=== PATIENT | male | born 1990 | race Caucasian/White ===

== ENCOUNTER 2020-10-12 15:06 | Emergency (ER) | payer OTHER, BC ==
[2020-10-12] MEDS ORDERED: HYDROmorphone 1 MG/ML CARPUJECT IM STA (16:01)
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
[2020-10-12 16:47] VITALS: BP 136/86
== END 2020-10-12 17:07 | disposition home or self-care (01) ==
LOC: ED 15:06
DX: M25.511 Pain in right shoulder (principal); G89.29 Other chronic pain; M54.6 Pain in thoracic spine; W07.XXXA Fall from chair, initial encounter; Y93.89 Activity, other specified; Y92.009 Unspecified place in unspecified non-institutional (private) residence as the place of occurrence of the external cause; Y99.0 Civilian activity done for income or pay
CPT/HCPCS: 96372; 99281; 99284; J1170

== ENCOUNTER 2023-05-20 19:10 | Emergency (ER) | payer OTHER ==
[2023-05-20 19:22] VITALS: BP 128/84
--- OUTSIDE RECORDS SUMMARY | 2023-05-20 19:39 | EXTERNAL MEDICAL SUMMARY RPT | Continuity of Care Document ---
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 Name Role Phone Ricardo Mejía Unavailable Unavailable Medications date description facility 2023-03-11 00:00 Amoxicillin-Pot Cl[facility]ulanate [facility] Results/Labs test date author facility value unit interpretation Result panel 1 (unknown) (no date) (unknown) (unknown) (no value) (units unknown) (unknown) (unknown) (no date) (unknown) (unknown) 03/11/23 (units unknown) (unknown) (unknown) (no date) (unknown) (unknown) [id number] (units unknown) (unknown) (unknown) (no date) (unknown) (unknown) Age/Sex: 33 / M Date of Service: (units unknown) (unknown) (unknown) (no date) (unknown) (unknown) Allergies (units unknown) (unknown) (unknown) (no date) (unknown) (unknown) [facility] (units unknown) (unknown) (unknown) (no date) (unknown) (unknown) [place] [address] (units unknown) (unknown) (unknown) (no date) (unknown) (unknown) Attending Dr: Juliette MELISSA (units unknown) (unknown) (unknown) (no date) (unknown) (unknown) : 9 Acct:[id number] (units unknown) (unknown) (unknown) (no date) (unknown) (unknown) Dept at . (units unknown) (unknown) (unknown) (no date) (unknown) (unknown) Documented By: Juliette Daniel 03/11/23 1238 (units unknown) (unknown) (unknown) (no date) (unknown) (unknown) Draft (units unknown) (unknown) (unknown) (no date) (unknown) (unknown) Intake perform ed by: Mode Koo (units unknown) (unknown) (unknown) (no date) (unknown) (unknown) Intake (units unknown) (unknown) (unknown) (no date) (unknown) (unknown) Intake- Irma mcclelland Staff (units unknown) (unknown) (unknown) (no date) (unknown) (unknown) Loc: [facility] (units unknown) (unknown) (unknown) (no date) (unknown) (unknown) No Known Drug Allergies Allergy (Unverified 01/17/23 13:16) (units unknown) (unknown) (unknown) (no date) (unknown) (unknown) PFSH (units unknown) (unknown) (unknown) (no date) (unknown) (unknown) Patient: Bebo Cohen MR#: [id number] (units unknown) (unknown) (unknown) (no date) (unknown) (unknown) Reason For Visit (un its unknown) (unknown) (unknown) (no date) (unknown) (unknown) Signed By: (units unknown) (unknown) (unknown) (no date) (unknown) (unknown) Smoking Status : Unknown if ever smoked (units unknown) (unknown) (unknown) (no date) (unknown) (unknown) This note may have been all or partially generated using voice recognition (units unknown) (unknown) (unknown) (no date) (unknown) (unknown) Tobacco + Subs tance Use (units unknown) (unknown) (unknown) (no date) (unknown) (unknown) Tobacco Status (unit s unknown) (unknown) (unknown) (no date) (unknown) (unknown) Visit Reasons: poss ear infection discharge drainage (units unknown) (unknown) (unknown) (no date) (unknown) (unknown) Walk In Clinic Visit (units unknown) (unknown) (unknown) (no date) (unknown) (unknown) have occurred. If there are any questions, please contact the Medical Records (units unknown) (unknown) (unknown) (no date) (unknown) (unknown) may occur. Occasional wrong-word or 'sound-alike' substitutions may have (units unknown) (unknown) (unknown) (no date) (unknown) (unknown) occurred due t o the inherent limitations of voice recognition software. Please (units unknown) (unknown) (unknown) (no date) (unknown) (unknown) read the note carefully and recognize, using context, where these substitutions (units unknown) (unknown) (unknown) (no date) (unknown) (unknown) software. Alth ough every effort is made to edit content, live in housekeeper nanny errors (units unknown) (unknown) Result panel 2 (unknown) (no date) (unknown) (unknown) (no value) (units unknown) (unknown) (unknown) (no date) (unknown) (unknown) 03/11/23 (units unknown) (unknown) (unknown) (no date) (unknown) (unknown) 12:41 (units unknown) (unknown) (unknown) (no date) (unknown) (unknown) [id number] (units unknown) (unknown) (unknown) (no date) (unknown) (unknown) Age/Sex: 33 / M Date of Service: (units unknown) (unknown) (unknown) (no date) (unknown) (unknown) Allergies (units unknown) (unknown) (unknown) (no date) (unknown) (unknown) [facility] (units unknown) (unknown) (unknown) (no date) (unknown) (unknown) [place] [address] (units unknown) (unknown) (unknown) (no date) (unknown) (unknown) Attending Dr: Juliette MELISSA (units unknown) (unknown) (unknown) (no date) (unknown) (unknown) BMI 28.6 (units unknown) (unknown) (unknown) (no date) (unknown) (unknown) : 9 Acct:[id number] (units unknown) (unknown) (unknown) (no date) (unknown) (unknown) Dept at . (units unknown) (unknown) (unknown) (no date) (unknown) (unknown) Documented By: Juliette Daniel 03/11/23 1238 (units unknown) (unknown) (unknown) (no date) (unknown) (unknown) Draft (units unknown) (unknown) (unknown) (no date) (unknown) (unknown) Height 6 ft 6 in (un its unknown) (unknown) (unknown) (no date) (unknown) (unknown) Intake Note: (units unknown) (unknown) (unknown) (no date) (unknown) (unknown) Intake perform ed by: Mode Koo (units unknown) (unknown) (unknown) (no date) (unknown) (unknown) Intake (units unknown) (unknown) (unknown) (no date) (unknown) (unknown) Intake- Irma mcclelland Staff (units unknown) (unknown) (unknown) (no date) (unknown) (unknown) Loc: [facility] (units unknown) (unknown) (unknown) (no date) (unknown) (unknown) No Known Drug Allergies Allergy (Unverified 01/17/23 13:16) (units unknown) (unknown) (unknown) (no date) (unknown) (unknown) Oxygen Deliver y Method room air (units unknown) (unknown) (unknown) (no date) (unknown) (unknown) PFSH (units unknown) (unknown) (unknown) (no date) (unknown) (unknown) Patient: Bebo Cohen MR#: [id number] (units unknown) (unknown) (unknown) (no date) (unknown) (unknown) Pulse 71 (units unknown) (unknown) (unknown) (no date) (unknown) (unknown) Pulse Oximetry (%) 98 (units unknown) (unknown) (unknown) (no date) (unknown) (unknown) Pulse Source Monitor (units unknown) (unknown) (unknown) (no date) (unknown) (unknown) Reason For Visit (un its unknown) (unknown) (unknown) (no date) (unknown) (unknown) Signed By: (units unknown) (unknown) (unknown) (no date) (unknown) (unknown) Smoking Status : Unknown if ever smoked (units unknown) (unknown) (unknown) (no date) (unknown) (unknown) Temp 97.6 F (units unknown) (unknown) (unknown) (no date) (unknown) (unknown) Temp Source Temporal Artery Scan (units unknown) (unknown) (unknown) (no date) (unknown) (unknown) This note may have been all or partially generated using voice recognition (units unknown) (unknown) (unknown) (no date) (unknown) (unknown) Tobacco + Subs tance Use (units unknown) (unknown) (unknown) (no date) (unknown) (unknown) Tobacco Status (unit s unknown) (unknown) (unknown) (no date) (unknown) (unknown) Visit Reasons: poss ear infection discharge drainage (units unknown) (unknown) (unknown) (no date) (unknown) (unknown) Vitals (units unknown) (unknown) (unknown) (no date) (unknown) (unknown) Walk In Clinic Visit (units unknown) (unknown) (unknown) (no date) (unknown) (unknown) Weight 248 lb (units unknown) (unknown) (unknown) (no date) (unknown) (unknown) ear has been h aving slight drainage (units unknown) (unknown) (unknown) (no date) (unknown) (unknown) have occurred. If there are any questions, please contact the Medical Records (units unknown) (unknown) (unknown) (no date) (unknown) (unknown) may occur. Occasional wrong-word or 'sound-alike' substitutions may have (units unknown) (unknown) (unknown) (no date) (unknown) (unknown) no fever (units unknown) (unknown) (unknown) (no date) (unknown) (unknown) occurred due t o the inherent limitations of voice recognition software. Please (units unknown) (unknown) (unknown) (no date) (unknown) (unknown) pt has been acuña ving pain in left ear since (units unknown) (unknown) (unknown) (no date) (unknown) (unknown) pt is here for possible ear infection (units unknown) (unknown) (unknown) (no date) (unknown) (unknown) read the note carefully and recognize, using context, where these substitutions (units unknown) (unknown) (unknown) (no date) (unknown) (unknown) slowly has bee n getting worse, slight ACUÑA and dizziness (units unknown) (unknown) (unknown) (no date) (unknown) (unknown) software. Alth ough every effort is made to edit content, live in housekeeper nanny errors (units unknown) (unknown) Result panel 3 (unknown) (no date) (unknown) (unknown) (no value) (units unknown) (unknown) (unknown) (no date) (unknown) (unknown) 03/11/23 (units unknown) (unknown) (unknown) (no date) (unknown) (unknown) 12:41 (units unknown) (unknown) (unknown) (no date) (unknown) (unknown) [id number] (units unknown) (unknown) (unknown) (no date) (unknown) (unknown) Age/Sex: 33 / M Date of Service: (units unknown) (unknown) (unknown) (no date) (unknown) (unknown) Allergies (units unknown) (unknown) (unknown) (no date) (unknown) (unknown) [facility] (units unknown) (unknown) (unknown) (no date) (unknown) (unknown) [place] [address] (units unknown) (unknown) (unknown) (no date) (unknown) (unknown) Attending Dr: Juliette MELISSA (units unknown) (unknown) (unknown) (no date) (unknown) (unknown) BMI 28.6 (units unknown) (unknown) (unknown) (no date) (unknown) (unknown) : 9 Acct:[id number] (units unknown) (unknown) (unknown) (no date) (unknown) (unknown) Dept at . (units unknown) (unknown) (unknown) (no date) (unknown) (unknown) Documented By: Juliette Daniel 03/11/23 1238 (units unknown) (unknown) (unknown) (no date) (unknown) (unknown) Draft (units unknown) (unknown) (unknown) (no date) (unknown) (unknown) Height 6 ft 6 in (un its unknown) (unknown) (unknown) (no date) (unknown) (unknown) Intake Note: (units unknown) (unknown) (unknown) (no date) (unknown) (unknown) Intake perform ed by: Mode Koo (units unknown) (unknown) (unknown) (no date) (unknown) (unknown) Intake (units unknown) (unknown) (unknown) (no date) (unknown) (unknown) Intake- Irma al Staff (units unknown) (unknown) (unknown) (no date) (unknown) (unknown) Loc: [facility] (units unknown) (unknown) (unknown) (no date) (unknown) (unknown) No Known Drug Allergies Allergy (Unverified 01/17/23 13:16) (units unknown) (unknown) (unknown) (no date) (unknown) (unknown) Oxygen Deliver y Method room air (units unknown) (unknown) (unknown) (no date) (unknown) (unknown) PFSH (units unknown) (unknown) (unknown) (no date) (unknown) (unknown) Patient: Bebo Cohen MR#: [id number] (units unknown) (unknown) (unknown) (no date) (unknown) (unknown) Pulse 71 (units unknown) (unknown) (unknown) (no date) (unknown) (unknown) Pulse Oximetry (%) 98 (units unknown) (unknown) (unknown) (no date) (unknown) (unknown) Pulse Source Monitor (units unknown) (unknown) (unknown) (no date) (unknown) (unknown) Reason For Visit (un its unknown) (unknown) (unknown) (no date) (unknown) (unknown) Signed By: (units unknown) (unknown) (unknown) (no date) (unknown) (unknown) Smoking Status : Unknown if ever smoked (units unknown) (unknown) (unknown) (no date) (unknown) (unknown) Temp 97.6 F (units unknown) (unknown) (unknown) (no date) (unknown) (unknown) Temp Source Temporal Artery Scan (units unknown) (unknown) (unknown) (no date) (unknown) (unknown) This note may have been all or partially generated using voice recognition (units unknown) (unknown) (unknown) (no date) (unknown) (unknown) Tobacco + Subs tance Use (units unknown) (unknown) (unknown) (no date) (unknown) (unknown) Tobacco Status (unit s unknown) (unknown) (unknown) (no date) (unknown) (unknown) Visit Reasons: poss ear infection discharge drainage (units unknown) (unknown) (unknown) (no date) (unknown) (unknown) Vitals (units unknown) (unknown) (unknown) (no date) (unknown) (unknown) Walk In Clinic Visit (units unknown) (unknown) (unknown) (no date) (unknown) (unknown) Weight 248 lb (units unknown) (unknown) (unknown) (no date) (unknown) (unknown) ear has been h aving slight drainage (units unknown) (unknown) (unknown) (no date) (unknown) (unknown) have occurred. If there are any questions, please contact the Medical Records (units unknown) (unknown) (unknown) (no date) (unknown) (unknown) may occur. Occasional wrong-word or 'sound-alike' substitutions may have (units unknown) (unknown) (unknown) (no date) (unknown) (unknown) no fever (units unknown) (unknown) (unknown) (no date) (unknown) (unknown) occurred due t o the inherent limitations of voice recognition software. Please (units unknown) (unknown) (unknown) (no date) (unknown) (unknown) pt has been acuña ving pain in left ear since (units unknown) (unknown) (unknown) (no date) (unknown) (unknown) pt is here for possible ear infection (units unknown) (unknown) (unknown) (no date) (unknown) (unknown) read the note carefully and recognize, using context, where these substitutions (units unknown) (unknown) (unknown) (no date) (unknown) (unknown) slowly has bee n getting worse, slight ACUÑA and dizziness (units unknown) (unknown) (unknown) (no date) (unknown) (unknown) software. Alth ough every effort is made to edit content, live in housekeeper nanny errors (units unknown) (unknown) Result panel 4 (unknown) (no date) (unknown) (unknown) (no value) (units unknown) (unknown) (unknown) (no date) (unknown) (unknown) (1) Otitis media: (u nits unknown) (unknown) (unknown) (no date) (unknown) (unknown) 03/11/23 1325 (units unknown) (unknown) (unknown) (no date) (unknown) (unknown) 03/11/23 (units unknown) (unknown) (unknown) (no date) (unknown) (unknown) 12:41 (units unknown) (unknown) (unknown) (no date) (unknown) (unknown) [id number] (units unknown) (unknown) (unknown) (no date) (unknown) (unknown) Age/Sex: 33 / M Date of Service: (units unknown) (unknown) (unknown) (no date) (unknown) (unknown) Alignment and Position:?alignment normal (units unknown) (unknown) (unknown) (no date) (unknown) (unknown) Allergies (units unknown) (unknown) (unknown) (no date) (unknown) (unknown) [facility] (units unknown) (unknown) (unknown) (no date) (unknown) ([place] [address] (units unknown) (unknown) (unknown) (no date) (unknown) (unknown) Assessment + Plan (u nits unknown) (unknown) (unknown) (no date) (unknown) (unknown) Attending Dr: Juliette MELISSA (units unknown) (unknown) (unknown) (no date) (unknown) (unknown) Auscultation:? clear to auscultation bilaterally (units unknown) (unknown) (unknown) (no date) (unknown) (unknown) BMI 28.6 (units unknown) (unknown) (unknown) (no date) (unknown) (unknown) Chief Complaint (uni ts unknown) (unknown) (unknown) (no date) (unknown) (unknown) Chief Complain t: Left ear pain (units unknown) (unknown) (unknown) (no date) (unknown) (unknown) Const (units unknown) (unknown) (unknown) (no date) (unknown) (unknown) : 9 Acct:[id number] (units unknown) (unknown) (unknown) (no date) (unknown) (unknown) Dept at . (units unknown) (unknown) (unknown) (no date) (unknown) (unknown) Details: (units unknown) (unknown) (unknown) (no date) (unknown) (unknown) Documented By: Juliette Daniel 03/11/23 1238 (units unknown) (unknown) (unknown) (no date) (unknown) (unknown) Ears:?hearing grossly normal bilaterally, external ears normal right TM WNL, (units unknown) (unknown) (unknown) (no date) (unknown) (unknown) Effort + Inspection:?normal respiratory effort (units unknown) (unknown) (unknown) (no date) (unknown) (unknown) Exam Narrative (unit s unknown) (unknown) (unknown) (no date) (unknown) (unknown) Exam Narrative: (uni ts unknown) (unknown) (unknown) (no date) (unknown) (unknown) Exam (units unknown) (unknown) (unknown) (no date) (unknown) (unknown) Eyes (units unknown) (unknown) (unknown) (no date) (unknown) (unknown) Face and sinus:?normal facial exam (units unknown) (unknown) (unknown) (no date) (unknown) (unknown) General:?appea nani normal, both eyes and all related structures (units unknown) (unknown) (unknown) (no date) (unknown) (unknown) General:?coope rativ e, healthy appearing, comfortable and no acute distress (units unknown) (unknown) (unknown) (no date) (unknown) (unknown) General:?no ra shes or lesions noted (units unknown) (unknown) (unknown) (no date) (unknown) (unknown) H66.90 - Otiti s media, unspecified, unspecified ear (units unknown) (unknown) (unknown) (no date) (unknown) (unknown) HENMT (units unknown) (unknown) (unknown) (no date) (unknown) (unknown) HPI and exam indicate left otitis media. Tylenol/ibuprofen for pain or (units unknown) (unknown) (unknown) (no date) (unknown) (unknown) HPI (units unknown) (unknown) (unknown) (no date) (unknown) (unknown) Head:?normal t o inspection (units unknown) (unknown) (unknown) (no date) (unknown) (unknown) Height 198.12 cm (un its unknown) (unknown) (unknown) (no date) (unknown) (unknown) Intake Note: (units unknown) (unknown) (unknown) (no date) (unknown) (unknown) Intake perform ed by: Mode Koo (units unknown) (unknown) (unknown) (no date) (unknown) (unknown) Intake (units unknown) (unknown) (unknown) (no date) (unknown) (unknown) Intake- Irma al Staff (units unknown) (unknown) (unknown) (no date) (unknown) (unknown) Loc: [facility] (units unknown) (unknown) (unknown) (no date) (unknown) (unknown) Medications: (units unknown) (unknown) (unknown) (no date) (unknown) (unknown) Mouth:?oral mu cosae normal (units unknown) (unknown) (unknown) (no date) (unknown) (unknown) Neck (units unknown) (unknown) (unknown) (no date) (unknown) (unknown) Neck:?normal v isual inspection, full ROM (units unknown) (unknown) (unknown) (no date) (unknown) (unknown) New (units unknown) (unknown) (unknown) (no date) (unknown) (unknown) No Known Drug Allergies Allergy (Unverified 01/17/23 13:16) (units unknown) (unknown) (unknown) (no date) (unknown) (unknown) Nose:?external nose normal (units unknown) (unknown) (unknown) (no date) (unknown) (unknown) Otitis media t ype: unspecified Chronicity: acute Qualified Code(s): (units unknown) (unknown) (unknown) (no date) (unknown) (unknown) Oxygen Deliver y Method room air (units unknown) (unknown) (unknown) (no date) (unknown) (unknown) PFSH (units unknown) (unknown) (unknown) (no date) (unknown) (unknown) Patient presen ts to walk-in clinic with complaints of left-sided ear pain for 5 (units unknown) (unknown) (unknown) (no date) (unknown) (unknown) Patient: Bebo Cohen MR#: [id number] (units unknown) (unknown) (unknown) (no date) (unknown) (unknown) Periorbital:?p erior bital findings normal (units unknown) (unknown) (unknown) (no date) (unknown) (unknown) Plan (units unknown) (unknown) (unknown) (no date) (unknown) (unknown) Pulse 71 (units unknown) (unknown) (unknown) (no date) (unknown) (unknown) Pulse Oximetry (%) 98 (units unknown) (unknown) (unknown) (no date) (unknown) (unknown) Pulse Source Monitor (units unknown) (unknown) (unknown) (no date) (unknown) (unknown) Qualifiers: (units unknown) (unknown) (unknown) (no date) (unknown) (unknown) Reason For Visit (un its unknown) (unknown) (unknown) (no date) (unknown) (unknown) Resp (units unknown) (unknown) (unknown) (no date) (unknown) (unknown) Signed By: <Electronically signed by Juliette Daniel> (units unknown) (unknown) (unknown) (no date) (unknown) (unknown) Signed (units unknown) (unknown) (unknown) (no date) (unknown) (unknown) Skin (units unknown) (unknown) (unknown) (no date) (unknown) (unknown) Smoking Status : Unknown if ever smoked (units unknown) (unknown) (unknown) (no date) (unknown) (unknown) Teeth and gingiva:?dentition normal (units unknown) (unknown) (unknown) (no date) (unknown) (unknown) Temp 97.6 F (units unknown) (unknown) (unknown) (no date) (unknown) (unknown) Temp Source Temporal Artery Scan (units unknown) (unknown) (unknown) (no date) (unknown) (unknown) This note may have been all or partially generated using voice recognition (units unknown) (unknown) (unknown) (no date) (unknown) (unknown) Throat:?extractions technician ior oropharynx normal (units unknown) (unknown) (unknown) (no date) (unknown) (unknown) Tobacco + Subs tance Use (units unknown) (unknown) (unknown) (no date) (unknown) (unknown) Tobacco Status (unit s unknown) (unknown) (unknown) (no date) (unknown) (unknown) Visit Reasons: poss ear infection discharge drainage (units unknown) (unknown) (unknown) (no date) (unknown) (unknown) Visual Robles:?normal visual robles by confrontation (units unknown) (unknown) (unknown) (no date) (unknown) (unknown) Vitals (units unknown) (unknown) (unknown) (no date) (unknown) (unknown) Walk In Clinic Visit (units unknown) (unknown) (unknown) (no date) (unknown) (unknown) Weight 112.491 kg (u nits unknown) (unknown) (unknown) (no date) (unknown) (unknown) amoxicillin-po t clavulanate 875-125 mg 1 tab PO BID 14 tabs 0RF (units unknown) (unknown) (unknown) (no date) (unknown) (unknown) days. He does report that pain is getting worse. He but there was some clear (units unknown) (unknown) (unknown) (no date) (unknown) (unknown) discomfort. Re st, increase fluids. Return to the emergency department if (units unknown) (unknown) (unknown) (no date) (unknown) (unknown) drainage thoug h he has been cleaning his ears with Q-tips. He states he tries (units unknown) (unknown) (unknown) (no date) (unknown) (unknown) ear has been h aving slight drainage (units unknown) (unknown) (unknown) (no date) (unknown) (unknown) have occurred. If there are any questions, please contact the Medical Records (units unknown) (unknown) (unknown) (no date) (unknown) (unknown) headache and dizziness. Denies sinus congestion, runny nose, fever, sore (units unknown) (unknown) (unknown) (no date) (unknown) (unknown) left TM effusi on partial perforation. (units unknown) (unknown) (unknown) (no date) (unknown) (unknown) may occur. Occasional wrong-word or 'sound-alike' substitutions may have (units unknown) (unknown) (unknown) (no date) (unknown) (unknown) no fever (units unknown) (unknown) (unknown) (no date) (unknown) (unknown) occurred due t o the inherent limitations of voice recognition software. Please (units unknown) (unknown) (unknown) (no date) (unknown) (unknown) pt has been acuña ving pain in left ear since (units unknown) (unknown) (unknown) (no date) (unknown) (unknown) pt is here for possible ear infection (units unknown) (unknown) (unknown) (no date) (unknown) (unknown) read the note carefully and recognize, using context, where these substitutions (units unknown) (unknown) (unknown) (no date) (unknown) (unknown) slowly has bee n getting worse, slight ACUÑA and dizziness (units unknown) (unknown) (unknown) (no date) (unknown) (unknown) software. Alth ough every effort is made to edit content, live in housekeeper nanny errors (units unknown) (unknown) (unknown) (no date) (unknown) (unknown) symptoms worse n or new symptoms develop. Follow-up with primary care as needed (units unknown) (unknown) (unknown) (no date) (unknown) (unknown) throat, dental pain. He is alert, oriented and comfortable. (units unknown) (unknown) (unknown) (no date) (unknown) (unknown) to go in his f ar as he can without causing more. He also states that he has (units unknown) (unknown) Social History date description facility 2023-03-11 00:00 Tobacco smoking consumption nestor sagastume ([facility] Vital Signs date measurement value units 2023-03-11 00:00 BMI 28.6 kg/m2 2023-03-11 00:00 heart_rate 71 /min 2023-03-11 00:00 height_metric 198.12 cm 2023-03-11 00:00 height_standard 78 in 2023-03-11 00:00 o2_saturation 98 % 2023-03-11 00:00 temperature_metric 36.44 C 2023-03-11 00:00 temperature_standard 97.6 F 2023-03-11 00:00 weight_metric 112.49 kg 2023-03-11 00:00 weight_standard 248 lb
--- NOTE | 2023-05-20 20:17 | ED Physician Documentation ---
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 He is ambidextrous. Tetanus is up-to-date.) PD PAST MEDICAL HISTORY - Past Medical History Cardiovascular: None Respiratory: None Neuro: Migraines Endocrine/Autoimmune: None GI: None : None HEENT: None Psych: Anxiety Musculoskeletal: Chronic back pain Derm: None - Past Surgical History Past Surgical History: No - Present Medications Home Medications: Ambulatory Orders Medication Instructions Recorded Confirmed diazePAM [Valium] 5 mg PO TID PRN #10 tablet 06/14/20 HYDROcod/ACETAM 5/325 [[place] 5/325] 1 - 2 tab PO Q6H PRN #7 tablet 05/20/23 - Allergies Allergies/Adverse Reactions: Allergies Allergy/AdvReac Type Severity Reaction Status Date / Time No Known Drug Allergies Allergy Verified 05/20/23 19:16 - Social History Does the pt smoke?: No Smoking Status: Never smoker Does the pt drink ETOH?: Yes Does the pt have substance abuse?: Yes - Immunizations Immunizations are current?: Yes - POLST Patient has POLST: No PD ED PE NORMAL - Vitals Vital signs reviewed: Yes - General General: Alert and oriented X 3, No acute distress - Extremities Extremities: Other (There is a very shallow laceration just proximal to the nailbed on the dorsal fourth left finger and tenderness about the DIP joint without limited range of motion.) - Neuro Neuro: Alert and oriented X 3, Normal speech Results - Vitals Vitals: Vital Signs - 24 hr 05/20/23 19:17 Temperature 36.5 C Heart Rate 88 Respiratory 16 Rate Blood Pressure 128/84 H O2 Saturation 99 Oxygen O2 Source Room air - Rads (name of study) Three-view x-ray of the left fourth finger is unremarkable. Relevant Findings:: Final report received, EMP independent interpretation of test PD Medical Decision Making - ED course ED course: 33-year-old gentleman with a crush injury of the left fourth finger with pain. No subungual hematoma or laceration that needs repair. Negative x-ray. L&I paperwork completed and submitted Departure - Departure Disposition: 01 Home, Self Care Clinical Impression: Crushing injury of finger of left hand Condition: Good Record reviewed to determine appropriate education?: Yes Instructions: ED Sprain Finger Prescriptions: HYDROcod/ACETAM 5/325 [[place] 5/325] 1 - 2 tab PO Q6H PRN #7 tablet PRN Reason: Pain Comments: I sent your prescription electronically to [facility] in [place]. Should be better over the next couple days. Follow-up with your primary care physician towards the end of the week if not improving. Return for new or worsening symptoms. I am prescribing a short course of narcotic pain medication for you. These are potentially dangerous and addictive medications that should be used carefully. These medications may constipate you. Take an wgee-avm-lwmccta stool softener (docusate) twice daily with plenty of water while taking these medications. If you go 24 hours without a bowel movement, take rdog-gws-vikhaje miralax, per package instructions. Do not drink or drive while taking these medications. If you received narcotic or sedating medications while in the emergency department, do not drive for 24 hours. Store this medication in a safe, secure place and out of reach of children. It is a violation of federal law to give or sell this medication to another person or to use in a manner other than prescribed. The ED will not refill narcotic prescriptions, including prescriptions lost or stolen. To dispose of unwanted medications: 1. [facility][Note 3][employer] provides a drop box for medication in pill form only (no liquids) 8:00 am to 4:30 p.m. Saturday-Saturday in the lobby of the [facility], [address] [place] [address]. Empty pills into ziplock bag before disposal. Call [phone] for information. 2.[employer]) is a free service available to all [facility] residents. Go to [email or web address]/ Note that many narcotic pain relievers also contain Tylenol/acetaminophen. Please ensure that your total dose of acetaminophen from all sources does not exceed 3 g (3000 mg) per day. Forms: Activity restrictions Discharge Date/Time: 05/20/23 20:30
[2023-05-20] MEDS: HYDROcod/ACET 5/325 Prepack 4 PO STA (20:23)
--- NOTE | 2023-05-20 20:57 | XRAY Report ---
PROCEDURE: Finger(s) LT INDICATIONS: finger inj TECHNIQUE: AP hand, 2 views of the fourth digit acquired. COMPARISON: None. FINDINGS: Bones: No fractures or dislocations. No suspicious bony lesions. Soft tissues: No suspicious soft tissue calcifications or masses. IMPRESSION: 1. No fracture or dislocation. Reviewed by: Lux Valentino MD on 05/20/2023 8:55 PM PDT Approved by: Lux Valentino MD on 05/20/2023 8:55 PM PDT Station ID: [id number]
== END 2023-05-20 20:30 | disposition home or self-care (01) ==
LOC: ED 19:10
DX: S67.195A Crushing injury of left ring finger, initial encounter (principal); S61.215A Laceration without foreign body of left ring finger without damage to nail, initial encounter; W23.1XXA Caught, crushed, jammed, or pinched between stationary objects, initial encounter; Y92.511 Restaurant or cafe as the place of occurrence of the external cause; Y99.0 Civilian activity done for income or pay
CPT/HCPCS: 1040M; 73140; 99283; 99284